=== PATIENT | female | born 1985 | race Caucasian/White ===

== ENCOUNTER 2019-01-13 13:53 | Emergency (ER) | payer OTHER ==
[~2019-01-13] VITALS: Ht 167.6 cm; Wt 88.5 kg
[~2019-01-13 13:53] MED LIST: LAMICTAL100 MG PO; NORCO 5-325 TA1 EACH PO; ZOFRAN4 MG PO
[2019-01-13 15:36] LABS: URINE BLOOD NEGATIVE (Negative); URINE COLOR YELLOW; URINE GLUCOSE-RANDOM* NEGATIVE (Negative); URINE KETONES 3+ (Negative); URINE LEUKOCYTES-REFLEX NEGATIVE (Negative); URINE NITRITE-REFLEX NEGATIVE (Negative); URINE PROTEIN (DIPSTICK) TRACE (Negative); URINE SPECIFIC GRAVITY >= 1.030 (1.005-1.035); URINE UROBILINOGEN 0.2 E.U./dl (0.2-1.0)
[2019-01-13 15:42] LABS: ICTOTEST (BILI CONFIRMATORY) Negative (Negative); URINE BILIRUBIN NEGATIVE (Negative); URINE CLARITY HAZY
[2019-01-13 15:59] LABS: ABSOLUTE NEUTROPHILS 5.4 thou/uL (1.4-8.2); BASOPHILS 0.7 % (0.0-2.0); EOSINOPHILS 0.4 % (0.0-3.0); HEMATOCRIT 42.6 % (37.0-47.0); HEMOGLOBIN 15.1 gm/dL (12.0-15.0); LYMPHOCYTES 16.6 % (24.0-44.0); MCH 33.2 pg (26.0-34.0); MCHC 35.3 g/dL (28.0-37.0); MCV 94.1 fL (80.0-100.0); MONOCYTES 11.4 % (1.0-8.0); PLATELET COUNT 247 thou/uL (150-400); POLYS 70.9 % (36.0-66.0); RBC 4.53 mil/uL (4.20-5.00); RDW 12.8 % (10.5-14.5); WBC 7.6 thou/uL (4.0-11.0)
[2019-01-13 16:06] LABS: CALCIUM 9.1 mg/dL (8.5-10.1); CREATININE 0.7 mg/dL (0.6-1.0); POTASSIUM 3.5 mmol/L (3.5-5.1)
[2019-01-13 16:15] LABS: MONOTEST (MONOSPOT)* POSITIVE (Negative)
[2019-01-13] MEDS ORDERED: IBUPROFEN 600600 M1 PO (17:27)
[2019-01-13] MEDS ORDERED: PROMETH-CODEIN 65 ML PO (17:27)
[2019-01-13] MEDS ORDERED: NORFLEX100 MG PO (17:27)
[2019-01-13 17:58] VITALS: BP 134/84
== END 2019-01-13 17:43 | disposition home or self-care (01) ==
LOC: ER 13:53
PROVIDERS: Emergency Medicine
DX: J10.1 Influenza due to other identified influenza virus with other respiratory manifestations (principal); F17.210 Nicotine dependence, cigarettes, uncomplicated

== ENCOUNTER → 2019-07-26 | Outpatient (CLI) | payer OTHER ==
[~2019-07-26] VITALS: Ht 170.2 cm; Wt 88.5 kg
[~2019-07-26] MED LIST changes: +IBUPROFEN 600600 M1 PO; +MELATONIN5 M1 PO; +NORFLEX100 MG PO; +PROMETH-CODEIN 65 ML PO
--- NOTE | ~2019-07-26 | P ---
[facility] [place] [address] [place] [address] PROCEDURE REPORT Name: GILBERTO CARLIN Room #: REG [facility]#: [id number] Admission: 07/26/19 ������������������ Attend Phys: Madhu Flores Discharge: ������������������ Date of : 87 Report #: [id number] THIS REPORT FOR: //name// CC: Joni Nova DATE OF SERVICE: 07/26/2019 PROCEDURE PERFORMED: Colonoscopy with biopsies. HISTORY OF PRESENT ILLNESS: The patient is a 34-year-old female with chronic diarrhea for approximately a month. Stool studies have been negative. She does report intermittent, crampy abdominal pain. She also reports a small amount of bright red blood per rectum. The patient reportedly had a colonoscopy 7 years ago and was diagnosed with an anal fissure at that time. She denies any anal or anorectal pain at this time. She does have a family history of ulcerative colitis in her mother. No family history of colon cancer. She is averaging 7 bowel movements per day at this time. She did travel to [place] last month. DESCRIPTION OF PROCEDURE: The risks and benefits of the procedure were explained to the patient, those risks including but not limited to bleeding, perforation, the risk of sedation. She understood these risks and gave informed consent. Sedation was given using propofol per anesthesia. Next, a digital rectal exam was initially performed, which was normal. Next, using a standard Olympus colonoscope, the scope was placed in the patient's anus and advanced under direct vision to the cecum. The overall prep was excellent. The cecum and ileocecal valve were normal in appearance. Terminal ileum was intubated and normal in appearance. Ascending, transverse, descending and sigmoid colon were all normal. The rectal mucosa was normal. Random biopsies were obtained today to rule out the possibility of microscopic colitis. On retroflexion, no abnormalities were noted. Close examination of the anal canal showed a small anal fissure. No evidence of active bleeding. The scope was then withdrawn and the procedure terminated. The patient tolerated the procedure well. IMPRESSION: 1. Small anal fissure. 2. Otherwise, normal colonoscopy. RECOMMENDATIONS: 1. Await biopsy results. 2. We will start probiotics as well as Levsin on a p.r.n. basis. 3. Analpram b.i.d. for the next 2 weeks and then on a p.r.n. basis. [address] [address] PROCEDURE REPORT Name: GILBERTO CARLIN Room #: REG [facility] Vince#: [id number] Admission: 07/26/19 ������������������ Attend Phys: Madhu Flores Discharge: ������������������ Date of : 87 Report #: [id number] Thank you for allowing me to participate in her care. ��������������������������������������������� ���������������������������������������� By: ��������������������������������������������� 0920 2225 Madhu Lopez MD /nt
--- NOTE | 2019-07-27 16:06 | PATH ---
[facility] [address] [place] [address] PATHOLOGY RPT PROCEDURE Name: ROSA ELENA STILESNIKOLAS Sheldon Room #: REG FELICE Clarke#: [id number] ������������������ Admission: 07/26/19 ������������������ Date of : 87 Discharge: Report #: [id number] Path Case #: [id number] [facility] Accession Number: [id number] . 01 Material submitted: . colon - RANDOM COLON BX . 01 Clinical history: . Pre-OP DX: Diarrhea, abdominal pain Post-OP DX: Chronic diarrhea, anal fissure . 02 Diagnosis: Large intestine mucosa, random colon R/O microscopic colitis, endoscopic biopsy: - Scattered rare focus of acute cryptitis. - Negative for microscopic colitis. - Negative for dysplasia or malignancy. (IUV:agus; 07/27/2019) QMS 07/27/2019 1423 Local . 02 Comment: Sections of the colonic mucosa designated "random colon" show focal cryptitis, and a moderately cellular lamina propria composed predominantly of lymphocytes and plasma cells and occasional eosinophils. Surface ulceration is not identified. There are no crypt abscesses, granulomas or viral inclusions. Given the description, the differential diagnosis includes a resolving episode of acute colitis, focal self-limited acute episode of colitis, bowel preparation, medication-induced colitis as well as acute diverticulisis. Please correlate with clinical as well as endoscopic findings. (IUV:agus; 07/27/2019) . 02 Electronically signed: . Deneen Fishman MD, Pathologist NPI- [id number] . 01 Gross description: . Received in formalin labeled "Gilberto Stiles, random colon BX, rule out microscopic colitis," are multiple segments of sauer soft tissue measuring 1.5 x 0.4 x 0.1 cm in aggregate dimensions. The specimen is filtered and entirely submitted in cassette A1. (TSD; 07/26/2019) TOB/TOB 07/26/2019 2316 Local . 02 Pathologist provided ICD-10: K62.89 . [address] [address] PATHOLOGY RPT PROCEDURE Name: GILBERTO STILES Room #: REG [facility] Sun.#: [id number] ������������������ Admission: 07/26/19 ������������������ Date of : 87 Discharge: Report #: [id number] Path Case #: [id number] [facility] . [id number] Specimen Comment: A courtesy copy of this report has been sent to Specimen Comment: [phone], . Specimen Comment: Report sent to / DR DESHPANDE Performed at: [address], [place], [place] [id number] MD Joel Rebolledo MD Phone: [phone] Performed at: [address] [id number] MD Deneen Fishman MD Phone: [phone]
== END | disposition home or self-care (01) ==
LOC: GI 07:26
DX: K52.89 Other specified noninfective gastroenteritis and colitis (principal); K62.89 Other specified diseases of anus and rectum; K60.2 Anal fissure, unspecified; K21.9 Gastro-esophageal reflux disease without esophagitis; F17.210 Nicotine dependence, cigarettes, uncomplicated; Z98.890 Other specified postprocedural states; Z79.899 Other long term (current) drug therapy
CPT/HCPCS: 62110; 62900